=== PATIENT | female | born 1960 | race Caucasian/White ===

== ENCOUNTER 2020-01-07 08:52 | Outpatient (CLI) | payer OTHER, SELFPAY ==
--- NOTE | 2020-01-07 08:59 | MM_ITS ---
WS: [id number] BILATERAL DIGITAL SCREENING MAMMOGRAPHY WITH CAD CLINICAL INFORMATION: SCREENING HISTORY: Screening mammogram. No current complaints. COMPARISON: July 08, 2018 TECHNIQUE: Bilateral CC and MLO views. FINDINGS: Scattered fibroglandular densities bilaterally. No suspicious focal mass, asymmetry, calcifications, or architectural distortion. No evidence of malignancy. MM/[place] [id number] IMPRESSION: BI-RADS: 1-Negative FOLLOW UP: 1 Year Follow-up Recommend return to annual screening mammography.
== END 2020-01-07 08:53 | disposition home or self-care (01) ==
LOC: RADSHAW 08:58
PROVIDERS: PCP Family Medicine; Visit Provider Family Medicine
DX: Z12.31 Encounter for screening mammogram for malignant neoplasm of breast (principal)
CPT/HCPCS: 77067

== ENCOUNTER 2020-10-09 20:05 | Emergency (ER) | payer OTHER, SELFPAY ==
[2020-10-09 20:08] VITALS: RESP 16; BMI 35.5
[2020-10-09 20:21] VITALS: BP 170/92; PULSE 72; RESP 17; TEMP 36.6; O2SAT 95
--- NOTE | 2020-10-09 20:39 | XR_ITS ---
WS: [id number] XR chest 1V portable [id number] REASON FOR EXAM: cp FINDINGS: The chest is unchanged compared to 09/17/2016. The heart and the mediastinum are within normal limits. Calcified granulomatous change in both hemithoraces. No active pulmonary parenchymal or pleural disease. Bilateral shoulder joint degenerative change. Degenerative spondylosis in the mid and lower thoracic spine. XR/XR chest 1V portable [id number] IMPRESSION: No acute chest abnormality.
--- NOTE | 2020-10-09 20:39 | ECG_ITS ---
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 Measurements Intervals [place] Rate: 75 P: 44 NV: 172 QRS: -14 QRSD: 98 T: 50 QT: 385 QTc: 430 Interpretive Statements SINUS RHYTHM WITH OCCASIONAL VENTRICULAR PREMATURE COMPLEXES MINIMAL VOLTAGE CRITERIA FOR LVH, CONSIDER NORMAL VARIANT [MEETS CRITERIA IN ONE OF: R(aVL), S(V1), R(V5), R(V5/V6)+S(V1)] POSSIBLE ANTERIOR MYOCARDIAL INFARCTION [30 ms Q WAVE IN V3/V4, OR R < 0.2 mV IN V4], OF INDETERMINATE AGE Compared to ECG 09/17/2016 10:15:32 Ventricular premature complex(es) now present Myocardial infarct finding still present Electronically Signed On 10-12-2020 7:38:21 CDT by Stefania Liu M.D. [id number]
--- NOTE | 2020-10-09 20:40 | CTR_ITS ---
PROCEDURE INFORMATION: Exam: CT Head Without Contrast Exam date and time: 10/09/2020 9:10 PM Age: 60 years old Clinical indication: Patient HX: C/O dizziness - near syncope; Additional info: Dizzy TECHNIQUE: Imaging protocol: Computed tomography of the head without contrast. Radiation optimization: All CT scans at this facility use at least one of these dose optimization techniques: automated exposure control; mA and/or kV adjustment per patient size (includes targeted exams where dose is matched to clinical indication); or iterative reconstruction. COMPARISON: No relevant prior studies available. RADIATION DOSE METRICS: Total DLP (mGy-cm): 893.83 FINDINGS: Brain: Unremarkable. No hemorrhage. No significant white matter disease. No edema. Cerebral ventricles: No ventriculomegaly. Bones/joints: Unremarkable. No acute fracture. Paranasal sinuses: Visualized sinuses are unremarkable. No fluid levels. Mastoid air cells: Unremarkable as visualized. No mastoid effusion. Orbital cavity: No acute abnormality of the orbits demonstrated. Soft tissues: The soft tissues appear unremarkable. CT/CT head wo con* [id number] IMPRESSION: No acute intracranial abnormality demonstrated. Radiation Dose CTDIVOL = (mGy): DLP = 893.83 (mGy-cm)
[2020-10-09 21:02] LABS: Add Urine Microscopic? NO
[2020-10-09 21:04] LABS: Basophils % 0.3 %; Eosinophils # 0.2 10^3/uL (0.0-0.8); Eosinophils % 1.9 %; Hematocrit 35.2 % (37.0-47.0); Hemoglobin 11.6 g/dL (11.5-15.3); Lymphocytes # 2.3 10^3/uL (0.8-4.8); Lymphocytes % 26.3 %; Mean Corpuscular Hemoglobin 31.4 pg (28.0-34.0); Mean Corpuscular Volume 95.1 fL (81-99); Mean Platelet Volume 10.3 fL (7.4-10.4); Monocytes # 0.8 10^3/uL (0.2-0.9); Monocytes % 9.2 %; Neutrophils # 5.33 10^3/uL (1.8-7.7); Neutrophils % 62.1 %; Nucleated Red Blood Cells % 0 %; Platelet Count 268 10^3/cmm (130-400); Red Cell Distribution Width 12.9 % (12.1-15.1); White Blood Count 8.6 10^3/uL (4.0-10.0)
--- NOTE | 2020-10-09 21:04 | ED_ITS ---
HPI - Dizziness General: Chief Complaint: Dizziness Stated Complaint: NEAR SYNCOPE Time Seen by Provider: 10/09/20 20:25 History of Present Illness: HPI Narrative: 60-year-old essentially reporting near syncopal episode while cleaning up dinner this evening. She had eaten, rabbit, and was washing dishes when she suddenly became dizzy, a bit unsteady on her feet, and went to go sit down. She had some mild substernal discomfort in her chest, that is now located in the upper left chest towards her left shoulder. No significant shortness of breath, but she did have diaphoresis with some nausea she has not had episodes like this before. MD elicited complaint: dizziness, lightheadedness and near syncope Onset (ago): hour(s) Timing: sudden onset Severity: moderate Description: lightheadedness, off-balance and near-syncope History of similar symptoms: No Exacerbating factors: nothing Relieving factors: nothing Associated symptoms: Reports chest pain, diaphoresis and nausea; Denies chills, cough, fevers/chills, headache(s), palpitations, short of breath or vomiting Associated neuro symptoms: Deny confusion, difficulty speaking, dysphagia, facial numbness or facial weakness Review of Systems Const: Reports: diaphoresis; Denies: fever(s) or chills Eyes: Denies: change in vision ENMT: Denies: throat pain Card: Reports: chest pain and irregular heart rhythm (Chronic from PVCs); Denies: palpitations Resp: Denies: dyspnea, productive cough, non-productive cough or wheezing GI: Reports: nausea; Denies: vomiting or dysphagia : Denies: difficulty voiding Neuro: Denies: headache(s) or confusion PFS ED PFSH: Medical History (Updated 10/09/20 @ 23:49 by Bulmaro Mcclellan DO) HTN (hypertension) Sarcoidosis Social History (Updated 01/28/20 @ 14:50 by Antionette Bergeron RN) Smoking and tobacco status: never smoked Alcohol intake: never Physical Exam Const: COMMON NORMALS: patient oriented x3 GENERAL APPEARANCE: well developed ORIENTATION/CONSCIOUSNESS: Yes oriented to person, Yes oriented to place and Yes oriented to time HENMT: COMMON NORMALS: normocephalic, external ears normal and Normal external nose present HEAD & SCALP: normocephalic NOSE: Normal external nose present and No nasal discharge present EXTERNAL EAR: Yes external ears normal THROAT: posterior oropharynx normal; no peritonsillar mass Eye: COMMON NORMALS: Equal, round and reactive pupils present, EOMs intact bilaterally and conjunctivae normal EYELID: eyelids normal CONJUNCTIVA: Yes conjunctivae normal PUPIL: Yes Equal, round and reactive pupils present Neck/C-Spine: GENERAL: No tracheal deviation Chest: COMMONS NORMALS: normal inspection of the chest CHEST: No tenderness Resp: COMMON NORMALS: clear to auscultation bilaterally EFFORT & INSPECTION: No tachypneic, No respiratory distress, No retractions, No uses accessory muscles and No tracheal deviation AUSCULTATION: clear to auscultation bilaterally, no rhonchi, no wheezes and lung sounds not diminished Cardio: COMMON NORMALS: regular rate RATE: regular rate RHYTHM: abnormal rhythm with ectopic beats HEART SOUNDS: no murmurs PERIPHERAL PULSES: radial pulses present GI: INSPECTION: No abdominal distension AUSCULTATION: No Hyperactive bowel sounds present and No Hypoactive bowel sounds present PALPATION: No Guarding due to palpation present (GI) and No Rigid due to palpation PERCUSSION: no dullness to percussion and no tympanic to percussion Neuro: COMMON NORMALS: patient oriented x3 SENSORIUM/ORIENTATION: Yes oriented to person, Yes oriented to place and Yes oriented to time CRANIAL NERVES: Yes CN normal except as noted COORDINATION/BALANCE: wxcybo-da-edmz test normal and hkrw-at-aetb test normal SPEECH: speech normal SENSORY EXAM: Yes extremities (Normal) MOTOR EXAM: Pronator motor function not present COORDINATION: nekqep-yo-evye test normal and nbyd-xh-rvhs test normal Psych: COMMON NORMALS: mental status grossly normal Skin: COMMON NORMALS: no rashes or lesions noted GENERAL SKIN EXAM: no rashes or lesions noted Course Vital Signs: Vital signs: Vital Signs Temperature 97.9 F 10/09/20 20:21 Pulse Rate 77 10/10/20 00:19 Respiratory Rate 16 10/10/20 00:19 Blood Pressure 122/74 10/10/20 00:19 Pulse Oximetry 98 10/10/20 00:19 MDM - Dizziness MDM Narrative: Medical decision making narrative: Symptoms essentially are self resolved. The patient has been up and walked in the ER. She is not had any language problems. Chest discomfort is gone. White blood cell count is 8.6. Hemoglobin 11.6. Creatinine 1.3. D-dimer is mildly high at 0.93, but by years criteria for PE, less than 0.4% chance given other factors. Troponin did not elevated 2 hours. No significant arrhythmia on the monitor. She will be allowed home. She is encouraged to follow-up as an outpatient for possible Holter monitoring versus any other needed outpatient tests. She knows to return for return of her symptoms. Lab Data: Labs: Lab Results 10/09/20 10/09/20 10/09/20 Range/Units 20:50 20:50 20:50 WBC 8.6 (4.0-10.0) 10^3/ uL RBC 3.70 L (4.1-5.3) 10^6/u L Hgb 11.6 (11.5-15.3) g/dL Hct 35.2 L (37.0-47.0) % MCV 95.1 (81-99) fL MCH 31.4 (28.0-34.0) pg MCHC 33.0 (30.0-36.0) g/dL RDW 12.9 (12.1-15.1) % Plt Count 268 (130-400) 10^3/c mm MPV 10.3 (7.4-10.4) fL Neut % (Auto) 62.1 % Lymph % (Auto) 26.3 % Larue % (Auto) 9.2 % Eos % (Auto) 1.9 % Baso % (Auto) 0.3 % Neut # (Auto) 5.33 (1.8-7.7) 10^3/u L Lymph # (Auto) 2.3 (0.8-4.8) 10^3/u L Larue # (Auto) 0.8 (0.2-0.9) 10^3/u L Eos # (Auto) 0.2 (0.0-0.8) 10^3/u L Baso # (Auto) 0.0 (0.0-0.1) 10^3/u L Nucleated RBC % (a uto) 0 % Nucleated RBCs # 0.0 /100WBC D-Dimer 0.93 H (0-0.59) ug/mIFE U Sodium 135 L (136-145) mmol/L Potassium 4.1 (3.5-5.1) mmol/L Chloride 100 (98-107) mmol/L Carbon Dioxide 25 (22-29) mmol/L Anion Gap 14.1 (5-19) BUN 19 (8-23) mg/dL Creatinine 1.3 H (0.5-0.9) mg/dL GFR Calculation 41.5 L (90-130) mL/min Glucose 99 (65-115) mg/dL Calculated Osmolal ity 282 L (285-295) mOsm/k g Calcium 9.3 (8.5-10.5) mg/dL Total Bilirubin 0.2 (0.15-1.2) mg/dL AST 17 (0-32) U/L ALT 13 (0-33) U/L Alkaline Phosphata se 70 (35-105) IU/L Creatine Kinase 41 (26-192) U/L Troponin T Baselin e (0-10) ng/L Troponin T [address] [place] (0-10) ng/L Delta Troponin T (0-10) ABS# NT-Pro-B Natriuret Pep 341 H (0-125) pg/mL Total Protein 6.0 L (6.6-8.7) g/dL Albumin 3.9 (3.5-5.2) g/dL Globulin 2.1 (1.3-4.6) g/dL Urine Color (Yellow) Urine Appearance (CLEAR) Urine pH (5-7) Ur Specific Gravit y (1.005-1.030) Urine Protein (Negative) Urine Glucose (UA) (Normal) Urine Ketones (Negative) Urine Blood (Negative) Urine Nitrate (Negative) Urine Bilirubin (Negative) Urine Urobilinogen (Negative) mg/dL Ur Leukocyte Ashley ase (Negative) 10/09/20 10/09/20 10/09/20 Range/Units 20:50 20:50 22:52 WBC (4.0-10.0) 10^3/ uL RBC (4.1-5.3) 10^6/u L Hgb (11.5-15.3) g/dL Hct (37.0-47.0) % MCV (81-99) fL MCH (28.0-34.0) pg MCHC (30.0-36.0) g/dL RDW (12.1-15.1) % Plt Count (130-400) 10^3/c mm MPV (7.4-10.4) fL Neut % (Auto) % Lymph % (Auto) % Larue % (Auto) % Eos % (Auto) % Baso % (Auto) % Neut # (Auto) (1.8-7.7) 10^3/u L Lymph # (Auto) (0.8-4.8) 10^3/u L Larue # (Auto) (0.2-0.9) 10^3/u L Eos # (Auto) (0.0-0.8) 10^3/u L Baso # (Auto) (0.0-0.1) 10^3/u L Nucleated RBC % (a uto) % Nucleated RBCs # /100WBC D-Dimer (0-0.59) ug/mIFE U Sodium (136-145) mmol/L Potassium (3.5-5.1) mmol/L Chloride (98-107) mmol/L Carbon Dioxide (22-29) mmol/L Anion Gap (5-19) BUN (8-23) mg/dL Creatinine (0.5-0.9) mg/dL GFR Calculation (90-130) mL/min Glucose (65-115) mg/dL Calculated Osmolal ity (285-295) mOsm/k g Calcium (8.5-10.5) mg/dL Total Bilirubin (0.15-1.2) mg/dL AST (0-32) U/L ALT (0-33) U/L Alkaline Phosphata se (35-105) IU/L Creatine Kinase (26-192) U/L Troponin T Baselin e 6 (0-10) ng/L Troponin T [address] [place] 6.00 (0-10) ng/L Delta Troponin T 0 (0-10) ABS# NT-Pro-B Natriuret Pep (0-125) pg/mL Total Protein (6.6-8.7) g/dL Albumin (3.5-5.2) g/dL Globulin (1.3-4.6) g/dL Urine Color Yellow (Yellow) Urine Appearance Clear (CLEAR) Urine pH 5 (5-7) Ur Specific Gravit y 1.020 (1.005-1.030) Urine Protein Neg (Negative) Urine Glucose (UA) Norm (Normal) Urine Ketones Negative (Negative) Urine Blood Neg (Negative) Urine Nitrate Negative (Negative) Urine Bilirubin Neg (Negative) Urine Urobilinogen 1 H (Negative) mg/dL Ur Leukocyte Ashley ase Negative (Negative) Discharge Plan Discharge Patient Disposition: Home Clinical Impression: Near syncope Chest pain Qualifiers: Chest pain type: unspecified Qualified Code(s): R07.9 - Chest pain, unspecified Condition: Stable Prescriptions: No Action lisinopril 20 mg tablet 20 mg PO DAILY RF: 0 amitriptyline 25 mg tablet 25 mg PO DAILY RF: 0 estradiol 0.5 mg tablet 0.5 mg PO DAILY RF: 0 levothyroxine 50 mcg tablet 50 mcg PO DAILY RF: 0 lorazepam 0.5 mg tablet 0.5 mg PO TID PRNRF: 0 tramadol 50 mg tablet 50 mg PO .2 tabs am, 1 tab pm RF: 0 metoprolol tartrate 50 mg tablet 50 mg PO BID Qty: 60 RF: 11 Discharge Orders: Discharge ED (Routine); Ordered 10/09/20 Ordered By: Bulmaro Mcclellan Referrals: Jessie Bean MD [Primary Care Provider] - Stefania Liu MD [Physician] - 4-7 days Patient Instructions: Chest Pain (ED), Near Syncope (ED) Activity Restrictions/Additional Instructions: Return for return of or worsening chest discomfort, shortness of breath, mental status changes, weakness, episodes of syncope or passing out, any other concerning symptoms. Follow-up with cardiology, give them a call Saturday to let them know you were here Coding Level of Care Code ED Manager Assurance for David Gibbs
[2020-10-09 21:12] LABS: Bilirubin Urine Neg (Negative); Blood Urine Neg (Negative); Glucose Urine UA Norm (Normal); Ketones Urine Negative (Negative); Leukocyte Esterase Urine Negative (Negative); Nitrate Urine Negative (Negative); Protein Urine Neg (Negative); Urine Appearance Clear (CLEAR); Urine Color Yellow (Yellow); Urobilinogen Urine 1 mg/dL (Negative); pH Urine 5 (5-7)
[2020-10-09 21:27] LABS: Troponin(5th) Baseline 6 ng/L (0-10)
[2020-10-09 21:37] LABS: Alanine Aminotransferase 13 U/L (0-33); Albumin Level 3.9 g/dL (3.5-5.2); Alkaline Phosphatase 70 IU/L (35-105); Anion Gap 14.1 (5-19); Aspartate Amino Transferase 17 U/L (0-32); Blood Urea Nitrogen 19 mg/dL (8-23); Calcium 9.3 mg/dL (8.5-10.5); Carbon Dioxide 25 mmol/L (22-29); Chloride 100 mmol/L (98-107); Creatine Phosphokinase 41 U/L (26-192); Globulin 2.1 g/dL (1.3-4.6); Glomerular Filtration Rate 41.5 mL/min (90-130); Glucose 99 mg/dL (65-115); NT Pro B Type Natriuretic Pept 341 pg/mL (0-125); Osmolality Calculated 282 mOsm/kg (285-295); Potassium 4.1 mmol/L (3.5-5.1); Sodium 135 mmol/L (136-145); Total Bilirubin 0.2 mg/dL (0.15-1.2)
[2020-10-09 21:56] LABS: D Dimer 0.93 ug/mIFEU (0-0.59)
[2020-10-09 22:30] VITALS: BP 149/61; PULSE 74; RESP 14; O2SAT 96
--- NOTE | 2020-10-09 22:39 | ECG_ITS ---
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 Measurements Intervals [place] Rate: 72 P: 36 IN: 152 QRS: -11 QRSD: 90 T: 31 QT: 384 QTc: 420 Interpretive Statements SINUS RHYTHM WITH OCCASIONAL VENTRICULAR PREMATURE COMPLEXES MODERATE VOLTAGE CRITERIA FOR LVH, CONSIDER NORMAL VARIANT [MEETS CRITERIA IN ONE OF: R(aVL), S(V1), R(V5), R(V5/V6)+S(V1)] POSSIBLE ANTERIOR MYOCARDIAL INFARCTION , PROBABLY OLD [30 ms Q WAVE IN V3/V4, OR R < 0.2 mV IN V4] Compared to ECG 10/09/2020 20:19:25 No significant changes Electronically Signed On 10-11-2020 0:05:41 CDT by Lit Louise M.D. [id number]
[2020-10-09 23:00] VITALS: BP 138/74; PULSE 68; RESP 16; O2SAT 98
[2020-10-09 23:23] LABS: Troponin 5 2HR Delta 0 ABS# (0-10)
[2020-10-09 23:30] VITALS: BP 126/78; PULSE 79; RESP 18; O2SAT 98
[2020-10-10] VITALS: BP 134/74; PULSE 78; RESP 18; O2SAT 99
[2020-10-10 00:19] VITALS: BP 122/74; PULSE 77; RESP 16; O2SAT 98
== END 2020-10-10 00:20 | disposition home or self-care (01) ==
PROVIDERS: Emergency Provider Emergency Medicine; PCP Family Medicine
DX: R55 Syncope and collapse (principal); R07.9 Chest pain, unspecified; I10 Essential (primary) hypertension
CPT/HCPCS: 70450; 71045; 80053; 81003; 82550; 83880; 84484; 85025; 85378; 93005; 99284

== ENCOUNTER 2021-12-21 07:35 | Outpatient (CLI) | payer OTHER, SELFPAY ==
--- NOTE | 2021-12-21 07:43 | MM_ITS ---
WS: [id number] VIEWS: MLO and CC views both breasts. 3D digital tomosynthesis is also included in this exam. Comparison made with prior exam of 02/04/2013, 04/05/2014, 05/16/2017, 07/08/2018, 08/01/2018, 01/07/2020. Findings: There was no sign of mass, architectural distortion or suspicious calcification in either breast. Sc attered fibroglandular densities MM/[place] [id number] Impression: BI-RADS: 2-Benign FOLLOW-UP: 1 Year Follow-up This mammogram was also analyzed by the Computer Aided Detection System R2 Imag e Sill Worker.
== END 2021-12-21 07:36 | disposition home or self-care (01) ==
LOC: RAD 07:41
PROVIDERS: PCP Family Medicine; Visit Provider Family Medicine
DX: Z12.31 Encounter for screening mammogram for malignant neoplasm of breast (principal)
CPT/HCPCS: 77063; 77067

== ENCOUNTER 2022-10-08 13:54 | Outpatient (CLI) | payer OTHER, SELFPAY ==
--- NOTE | 2022-10-08 15:23 | XR_ITS ---
WS: [id number] XR lumbar spine 2-3V* [id number] REASON FOR EXAM: left low back si joint pain w/ radiation down leg FINDINGS: Rotatory scoliosis convex left. Normal lordosis. No significant focal vertebral body abnormality. Disc spaces L1-L5 intact and relatively well-preserv ed. Mild narrowing of the L5-S1 disc space. Mild to moderate vertebral body osteophytosis L1-L5. 4 to 5 mm of anterolisthesis of L4 in relation to L5. Mild to moderate degenerative change in the facet joints L4-S1. XR/XR lumbar spine 2-3V* [id number] IMPRESSION: Degenerative spondylosis as above.
--- NOTE | 2022-10-08 15:23 | XR_ITS ---
WS: [id number] XR pelvis 1-2V* [id number] REASON FOR EXAM: left low back si joint pain w/ radiation down leg FINDINGS: The sacroiliac joints are distinct without evidence of fusion or bridging. Normal subarticular sclero sis. No focal bony abnormality of the sacrum or iliac bones. Mild symmetric narrowing of the hip joints with mild subchondral sclerosis and osteophytosis of the a cetabulum. XR/XR pelvis 1-2V* [id number] IMPRESSION: Normal sacroiliac joints. Mild osteoarthritis of the hips.
== END 2022-10-08 13:55 | disposition home or self-care (01) ==
PROVIDERS: PCP Family Medicine; Visit Provider Family Medicine
DX: M53.3 Sacrococcygeal disorders, not elsewhere classified (principal); I10 Essential (primary) hypertension; E03.9 Hypothyroidism, unspecified; I49.3 Ventricular premature depolarization; M16.0 Bilateral primary osteoarthritis of hip; M47.816 Spondylosis without myelopathy or radiculopathy, lumbar region
CPT/HCPCS: 72100; 72170; 80053; 80061; 82306; 82607; 84443; 85025

== ENCOUNTER 2023-02-13 10:02 | Emergency (ER) | payer OTHER, SELFPAY ==
[2023-02-13 10:15] VITALS: BP 129/69; PULSE 78; RESP 16; TEMP 36.6; O2SAT 97; BMI 42.4
--- NOTE | 2023-02-13 10:33 | CTR_ITS ---
PROCEDURE INFORMATION: Exam: CT Head Without Contrast Exam date and time: 02/13/2023 11:02 AM Age: 62 years old Clinical indication: Other: Dysarthria TECHNIQUE: Imaging protocol: Computed tomography of the head without contrast. Radiation optimization: All CT scans at this facility use at least one of these dose optimization techniques: automated exposure control; mA and/or kV adjustment per patient size (includes targeted exams where dose is matched to clinical indication); or iterative reconstruction. REPORTING DATA: Count of CT and Cardiac NM exams in prior 12 months: This patient has received 0 known CTs and 0 known cardiac nuclear medicine studies in the 12 months prior to the current study. COMPARISON: CT head wo con* [id number] 10/09/2020 9:29 PM RADIATION DOSE METRICS: Total DLP (mGy-cm): 1052.64 FINDINGS: Brain: No hemorrhage. Preserved alicia-white matter differentiation. Mild periventricular white matter hypoattenuation likely on the basis of chronic microvascular ischemic change. No mass effect. Mild intracranial vascular calcifications. Cerebral ventricles: No ventriculomegaly. Pituitary gland and sella: Partially empty sella. Paranasal sinuses: Visualized sinuses are unremarkable. No fluid levels. Mastoid air cells: Visualized mastoid air cells are well aerated. Bones/joints: Unremarkable. No acute fracture. Soft tissues: Unremarkable. CT/CT head wo con* [id number] IMPRESSION: No acute intracranial findings.
--- NOTE | 2023-02-13 10:42 | W.ED.NEUROSD ---
HPI - Neuro Symptoms/Deficit General: Chief Complaint: Neuro Symptoms/Deficit Stated Complaint: cough,weakness,slurred speech,confusion Time Seen by Provider: 02/13/23 10:33 Source: patient and family Mode of arrival: ambulatory History of Present Illness: 62-year-old female presents emergency room with cough weakness slurred speech and confusion this been going on for a week no reported fever cough been nonproductive she denies chest pain or abdominal pain. She has had trouble can with confusion family at the bedside her states her speech has been slurred has not noticed any facial weakness or drooping. She denies any difficulty was wallowing or with vision. No previous history of stroke or coronary artery disease. Has reports that last night she was up most of the night wandering around the house and hit try to redirect her. He provides most of the history this morning. She is not on any anticoagulation. She does have a history hypertension. Onset (ago): minute(s) Timing confirmed by: spouse Location: speech Quality: weak Relieving factors: none Exacerbating factors: none Associated symptoms: Reports cough; Deny chest pain, diaphoresis, fevers/chills, headache(s), anorexia, malaise, nausea, seizures, short of breath, syncope, tingling, vertigo, vomiting or weakness Treatments Prior to Arrival: none Review of Systems Const: Denies: fever(s), chills, malaise or diaphoresis ENMT: Denies: throat pain, ear or mastoid pain, nasal discharge or nasal congestion Card: Denies: chest pain or syncope Resp: Reports: non-productive cough; Denies: dyspnea or productive cough GI: Denies: nausea or vomiting : Denies: flank pain, difficulty voiding, dysuria, urinary frequency or urinary urgency Skin/Breast: Denies: rash or pruritus Neuro: Denies: headache(s) or vertigo PFSH ED PFSH: Medical History Anxiety Depression HTN (hypertension) Hypothyroidism Insomnia Sarcoidosis Symptomatic PVCs Surgical History History of carpal tunnel release of both wrists History of glaucoma tube shunt procedure History of hysterectomy for benign disease Family History Father Dementia Grandmother Diabetes Stroke Brother Cancer leukemia Sister Sarcoidosis Social History Smoking and tobacco status: never smoked Alcohol intake: never Substance/Drug Use: never Lives independently: Yes Household members: spouse Marital status: Number of children: 2 Number of grandchildren: 2 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al status: employed 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: [employer]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 Agree to transfusion: Yes NIH stroke score NIHSS: Level Of Consciousness - 1a: 0 Level Of Consciousness Questions - 1b: Both Correct Level Of Consciousness Commands - 1c: Both Correct Best Gaze - 2: Normal Visual [place] - 3: No Visual Loss Facial Palsy - 4: Normal Motor Arm Right - 5: No Drift Motor Arm Left - 5: No Drift Motor Leg Right - 6: No Drift Motor Leg Left - 6: No Drift Limb Ataxia - 7: Absent Sensory - 8: Normal Best Language - 9: No Aphasia Dysarthia - 10: Mild/Moderate Dysarthia Extinction And Inattention - 11: 0 Score: Total Score: 1 Physical Exam Const: GENERAL APPEARANCE: cooperative and comfortable ORIENTATION/CONSCIOUSNESS: Yes awake HENMT: COMMON NORMALS: normocephalic, atraumatic and hearing grossly normal bilaterally HEAD & SCALP: normocephalic and atraumatic Resp: COMMON NORMALS: normal respiratory effort, No retractions, No use of accessory muscles and clear to auscultation bilaterally AUSCULTATION: clear to auscultation bilaterally Cardio: COMMON NORMALS: regular rate, regular rhythm and No murmurs present (Cardio) RATE: regular rate RHYTHM: regular rhythm GI: COMMON NORMALS: Soft to palpation and No hepatosplenomegaly present AUSCULTATION: Yes normoactive bowel sounds PALPATION: Yes Soft to palpation, No Tenderness to palpation present (GI), No Guarding due to palpation present (GI) and Yes No hepatosplenomegaly present Extremity: COMMON NORMALS: normal to inspection, capillary refill normal, no clubbing, cyanosis or edema, no calf tenderness and no pedal edema Skin: COMMON NORMALS: no rashes or lesions noted GENERAL SKIN EXAM: no rashes or lesions noted Course Vital Signs: Vital signs: Vital Signs Temperature 97.8 F 02/13/23 10:15 Pulse Rate 78 02/13/23 10:15 Respiratory Rate 16 02/13/23 10:15 Blood Pressure 129/69 02/13/23 10:15 Pulse Oximetry 97 02/13/23 10:15 Oxygen Delivery Me thod Room Air 02/13/23 10:15 MDM - Neuro Symptoms/Deficit Medical Decision Making Patient has NIH score of 1. She is awake and alert at this time. describes her symptoms are much worse at night. He has a difficult time with her last night. CT does not show anything acute. We will start her on clopidogrel aspirin and atorvastatin set her up for outpatient MRI carotid duplex echocardiogram and 48-hour Holter follow-up with primary care. She may also have some cognitive deficits and some of the symptoms may be sundowning primary care can refer to neurology if felt appropriate. Medical Records I reviewed the patient's medical records. Lab Data I reviewed the patient's lab results. 02/13/23 10:45 02/13/23 10:[address] 02/13/23 10:33 IMPRESSION: No acute intracranial findings. Laboratory Results WBC 8.3 10^3/uL (4.0-10.0) 02/13/23 10:45 RBC 3.60 10^6/uL (4.1-5.3) L 02/13/23 10:45 Hgb 11.7 g/dL (11.5-15.3) 02/13/23 10:45 Hct 35.1 % (37.0-47.0) L 02/13/23 10:45 MCV 97.5 fl (81-99) 02/13/23 10:45 MCH 32.5 pg (28.0-34.0) 02/13/23 10:45 MCHC 33.3 g/dL (30.0-36.0) 02/13/23 10:45 RDW 11.6 % (12.1-15.1) L 02/13/23 10:45 Plt Count 261 10^3/cmm (130-400) 02/13/23 10:45 MPV 10.5 fL (7.4-10.4) H 02/13/23 10:45 Neut % (Auto) 60.3 % 02/13/23 10:45 Lymph % (Auto) 25.7 % 02/13/23 10:45 [place] % (Auto) 8.7 % 02/13/23 10:45 Eos % (Auto) 4.7 % 02/13/23 10:45 Baso % (Auto) 0.4 % 02/13/23 10:45 Neut # (Auto) 5.02 10^3/uL (1.8-7.7) 02/13/23 10:45 Lymph # (Auto) 2.1 10^3/uL (0.8-4.8) 02/13/23 10:45 [place] # (Auto) 0.7 10^3/uL (0.2-0.9) 02/13/23 10:45 Eos # (Auto) 0.4 10^3/uL (0.0-0.8) 02/13/23 10:45 Baso # (Auto) 0.0 10^3/uL (0.0-0.1) 02/13/23 10:45 Nucleated RBC % (auto) 0 % 02/13/23 10:45 Nucleated RBCs # 0.0 /100WBC 02/13/23 10:45 Sodium 139 mmol/L (136-145) 02/13/23 10:45 Potassium 4.4 mmol/L (3.5-5.1) 02/13/23 10:45 Chloride 104 mmol/L (98-107) 02/13/23 10:45 Carbon Dioxide 26 mmol/L (22-29) 02/13/23 10:45 Anion Gap 13.4 (5-19) 02/13/23 10:45 BUN 14 mg/dL (8-23) 02/13/23 10:45 Creatinine 1.2 mg/dL (0.5-0.9) H 02/13/23 10:45 GFR Calculation 45.2 mL/min (90-130) L 02/13/23 10:45 Glucose 100 mg/dL (65-115) 02/13/23 10:45 Calculated Osmolality 289 mOsm/kg (285-295) 02/13/23 10:45 Calcium 9.3 mg/dL (8.5-10.5) 02/13/23 10:45 Total Bilirubin 0.2 mg/dL (0.15-1.2) 02/13/23 10:45 AST 15 U/L (0-32) 02/13/23 10:45 ALT 12 U/L (0-33) 02/13/23 10:45 Alkaline Phosphatase 78 U/L (35-105) 02/13/23 10:45 Troponin T Baseline 6 ng/L (0-10) 02/13/23 10:45 Troponin T 120 Minute 6.00 ng/L (0-10) 02/13/23 12:45 Delta Troponin T 0 ABS# (0-10) 02/13/23 12:45 Total Protein 5.9 g/dL (6.6-8.7) L 02/13/23 10:45 Albumin 4.1 g/dL (3.5-5.2) 02/13/23 10:45 Globulin 1.8 g/dL (1.3-4.6) 02/13/23 10:45 Urine Color Yellow (Yellow) 02/13/23 11:42 Urine Appearance Clear (CLEAR) 02/13/23 11:42 Urine pH 8 (5-7) H 02/13/23 11:42 Ur Specific [place] 1.005 (1.005-1.030) 02/13/23 11:42 Urine Protein Neg (Negative) 02/13/23 11:42 Urine Glucose (UA) Norm (Normal) 02/13/23 11:42 Urine Ketones Negative (Negative) 02/13/23 11:42 Urine Blood Neg (Negative) 02/13/23 11:42 Urine Nitrate Negative (Negative) 02/13/23 11:42 Urine Bilirubin Neg (Negative) 02/13/23 11:42 Urine Urobilinogen Norm mg/dL (Negative) 02/13/23 11:42 Ur Leukocyte Esterase Negative (Negative) 02/13/23 11:42 Discharge Plan Discharge Patient Disposition: Home Clinical Impression: Cerebrovascular accident Condition: Stable Prescriptions: New clopidogrel 75 mg tablet 75 mg PO DAILY Qty: 30 0RF aspirin 81 mg tablet,delayed release (DR/EC) 81 mg PO DAILY Qty: 30 0RF atorvastatin 40 mg tablet 40 mg PO DAILY Qty: 30 0RF No Action lisinopril 20 mg tablet 20 mg PO DAILY tramadol 50 mg tablet 50 mg PO TID trazodone 100 mg tablet 100 mg PO BEDTIME omeprazole 20 mg capsule,delayed release(DR/EC) 20 mg PO DAILY duloxetine 30 mg capsule,delayed release(DR/EC) 60 mg PO .at bedtime mirtazapine 15 mg tablet 15 mg PO BEDTIME simvastatin 10 mg tablet 10 mg PO QPM cholecalciferol (vitamin D3) 125 mcg (5,000 unit) capsule 125 mcg PO DAILY lorazepam 0.5 mg tablet 1 mg PO BEDTIME metoprolol tartrate 50 mg tablet 50 mg PO BID Qty: 180 1RF levothyroxine 75 mcg tablet 75 mcg PO DAILY Calcium 600 600 mg calcium (1,500 mg) Tablet 600 mg PO DAILY vitamin E 268 mg (400 unit) Capsule 268 mg PO DAILY magnesium 200 mg Tablet 200 mg PO DAILY Discharge Orders: Discharge ED (Routine); Ordered 02/13/23 Ordered By: Simón Estrella Referrals: Linda Null DO [Primary Care Provider] - Discharge Diet: Usual diet Discharge Activity: Increase activity as tolerated Patient Instructions: Opioid Safety, Pain Management Activity Restrictions/Additional Instructions: You are seen today for possible stroke. Since your symptoms began 1 over 1-week ago there is no intervention at this point there is no acute findings on the CT. We will set up outpatient evaluation as well as recommend that you start baby aspirin daily along with clopidogrel and atorvastatin follow-up with your primary care doctor within the next week recheck if you have any worsening or changes symptoms. Coding Level of Care Code ED Thermal Intelligence Analyst for David Gibbs
--- NOTE | 2023-02-13 10:50 | ECG_ITS ---
[facility] Test Date: 2023-02-13 Pat Name: Anabelle Seaman Department: Room: Gender: Female Cotton Tier: : 1960 Requested By: Simón Robels Order Number: [id number] Janey MD: Lit Louise M.D. Measurements Intervals [place] Rate: 80 P: 45 VA: 170 QRS: -4 QRSD: 98 T: 71 QT: 372 QTc: 429 Interpretive Statements SINUS RHYTHM MINIMAL VOLTAGE CRITERIA FOR LVH, CONSIDER NORMAL VARIANT [MEETS CRITERIA IN ONE OF: R(aVL), S(V1), R(V5), R(V5/V6)+S(V1)] POSSIBLE ANTERIOR MYOCARDIAL INFARCTION , OF INDETERMINATE AGE [30 ms Q WAVE IN V3/V4, OR R < 0.2 mV IN V4] Compared to ECG 10/09/2020 21:13:26 Ventricular premature complex(es) no longer present Myocardial infarct finding still present Electronically Signed On 02-13-2023 21:31:10 CDT by Lit Louise M.D. [id number]
[2023-02-13 10:59] LABS: Basophils % 0.4 %; Eosinophils # 0.4 10^3/uL (0.0-0.8); Eosinophils % 4.7 %; Hematocrit 35.1 % (37.0-47.0); Hemoglobin 11.7 g/dL (11.5-15.3); Lymphocytes # 2.1 10^3/uL (0.8-4.8); Lymphocytes % 25.7 %; Mean Corpuscular HGB Conc 33.3 g/dL (30.0-36.0); Mean Corpuscular Hemoglobin 32.5 pg (28.0-34.0); Mean Corpuscular Volume 97.5 fl (81-99); Mean Platelet Volume 10.5 fL (7.4-10.4); Monocytes # 0.7 10^3/uL (0.2-0.9); Monocytes % 8.7 %; Neutrophils # 5.02 10^3/uL (1.8-7.7); Neutrophils % 60.3 %; Nucleated Red Blood Cells % 0 %; Platelet Count 261 10^3/cmm (130-400); Red Cell Distribution Width 11.6 % (12.1-15.1); White Blood Count 8.3 10^3/uL (4.0-10.0)
--- NOTE | 2023-02-13 10:59 | ECG_ITS ---
[facility] Test Date: 2023-02-13 Pat Name: Anabelle Seaman Department: Room: Gender: Female Vice Chancellor: : 1960 Requested By: Simón Robles Order Number: [id number] Janey MD: Lit Louise M.D. Measurements Intervals [place] Rate: 78 P: 48 ND: 180 QRS: -11 QRSD: 94 T: 57 QT: 374 QTc: 428 Interpretive Statements SINUS RHYTHM LOW QRS VOLTAGE IN PRECORDIAL LEADS [QRS DEFLECTION < 1.0 mV IN CHEST LEADS] PATTERN CONSISTENT WITH PULMONARY DISEASE MINIMAL VOLTAGE CRITERIA FOR LVH, CONSIDER NORMAL VARIANT [MEETS CRITERIA IN ONE OF: R(aVL), S(V1), R(V5), R(V5/V6)+S(V1)] Compared to ECG 02/13/2023 10:50:04 Low QRS voltage now present Myocardial infarct finding no longer present Low high Electronically Signed On 02-13-2023 21:17:28 CDT by Lit Louise M.D. [id number]
[2023-02-13 11:17] LABS: Alanine Aminotransferase 12 U/L (0-33); Albumin Level 4.1 g/dL (3.5-5.2); Alkaline Phosphatase 78 U/L (35-105); Anion Gap 13.4 (5-19); Aspartate Amino Transferase 15 U/L (0-32); Blood Urea Nitrogen 14 mg/dL (8-23); Calcium 9.3 mg/dL (8.5-10.5); Carbon Dioxide 26 mmol/L (22-29); Chloride 104 mmol/L (98-107); Globulin 1.8 g/dL (1.3-4.6); Glomerular Filtration Rate 45.2 mL/min (90-130); Glucose 100 mg/dL (65-115); Osmolality Calculated 289 mOsm/kg (285-295); Potassium 4.4 mmol/L (3.5-5.1); Sodium 139 mmol/L (136-145); Total Bilirubin 0.2 mg/dL (0.15-1.2); Total Protein 5.9 g/dL (6.6-8.7)
[2023-02-13 11:20] LABS: Troponin(5th) Baseline 6 ng/L (0-10)
[2023-02-13 12:38] LABS: Add Urine Microscopic? NO; Charge for UA Resulting for Rev
[2023-02-13 12:49] LABS: Bilirubin Urine Neg (Negative); Blood Urine Neg (Negative); Glucose Urine UA Norm (Normal); Ketones Urine Negative (Negative); Leukocyte Esterase Urine Negative (Negative); Nitrate Urine Negative (Negative); Protein Urine Neg (Negative); Specific Gravity, Urine 1.005 (1.005-1.030); Urine Appearance Clear (CLEAR); Urine Color Yellow (Yellow); Urobilinogen Urine Norm (Negative); pH Urine 8 (5-7)
[2023-02-13 13:46] LABS: Troponin 5 2HR Delta 0 ABS# (0-10)
== END 2023-02-13 13:29 | disposition home or self-care (01) ==
PROVIDERS: Emergency Provider Family Medicine; PCP Family Medicine
DX: I63.9 Cerebral infarction, unspecified (principal); I10 Essential (primary) hypertension
CPT/HCPCS: 36415; 70450; 80053; 81003; 84484; 85025; 93005; 99285

== ENCOUNTER 2023-03-19 09:20 | Outpatient (CLI) | payer OTHER, SELFPAY ==
--- NOTE | 2023-03-19 09:31 | MM_ITS ---
WS: [id number] BILATERAL 3D TOMOSYNTHESIS DIGITAL SCREENING MAMMOGRAPHY WITH CAD CLINICAL INFORMATION: SCREENING HISTORY: Screening mammogram. No current complaints. COMPARISON: 2021 TECHNIQUE: Bilateral CC and MLO views. FINDINGS: Scattered fibroglandular densities bilaterally. No suspicious focal mass, asymmetry, calcifications, or architectural distortion. No evidence of malignancy. IMPRESSION: MM/[place] [id number] BI-RADS: 1-Negative FOLLOW UP: 1 Year Follow-up Recommend return to annual screening mammography.
== END 2023-03-19 09:21 | disposition home or self-care (01) ==
LOC: RAD 09:22 → MOBLMAM 09:28
PROVIDERS: PCP Family Medicine; Visit Provider Family Medicine
DX: Z12.31 Encounter for screening mammogram for malignant neoplasm of breast (principal)
CPT/HCPCS: 77063; 77067

== ENCOUNTER 2024-03-27 13:48 | Outpatient (CLI) | payer MEDICARE, SELFPAY ==
--- NOTE | 2024-03-27 13:55 | MM_ITS ---
WS: [id number] BILATERAL 3D TOMOSYNTHESIS DIGITAL SCREENING MAMMOGRAPHY WITH CAD CLINICAL INFORMATION: SCREENING HISTORY: Screening mammogram. No current complaints. COMPARISON: 2022 TECHNIQUE: Bilateral CC and MLO views. FINDINGS: Scattered fibroglandular densities bilaterally. No suspicious focal mass, asymmetry, calcifications, or architectural distortion. No evidence of malignancy. Vascular calcifications. MM/[id number] IMPRESSION: BI-RADS: 2-Benign FOLLOW UP: 1 Year Follow-up Recommend return to annual screening mammography.
== END 2024-03-27 13:49 | disposition home or self-care (01) ==
LOC: RAD 13:51
PROVIDERS: PCP Family Medicine; Visit Provider Family Medicine
DX: Z12.31 Encounter for screening mammogram for malignant neoplasm of breast (principal); R92.323 Mammographic fibroglandular density, bilateral breasts; R92.1 Mammographic calcification found on diagnostic imaging of breast
CPT/HCPCS: 77063; 77067

== ENCOUNTER 2024-04-28 15:48 | Outpatient (CLI) | payer MEDICARE, SELFPAY ==
--- NOTE | 2024-04-28 15:51 | MR_ITS ---
WS: [id number] MRI LUMBAR SPINE NONCONTRAST TECHNIQUE: Sagittal T1, T2 and STIR imaging. Axial T1 and T2 imaging. CLINICAL INFORMATION: LUMBAR RADICULOPATHY COMPARISON: None. FINDINGS: Mild lumbar curve. Slight anterolisthesis L4 on L5. Disc bulging worse at L1-L3. No acute compression fractures. L1-L2: Mild annular bulging. Moderate facet arthropathy. Small facet effusions. Foramen are patent. L2-L3: Slight retrolisthesis. Mild disc bulge with narrowing of the subarticular recess bilaterally. Moderate facet arthropathy. Mild RIGHT foraminal narrowing. Small RIGHT foraminal protrusion. L3-L4: Mild disc bulging with moderate central canal stenosis. Impingement subarticular recess. Advan anant facet arthropathy with ligamentum flavum hypertrophy. Mild RIGHT foraminal narrowing with slight impingement on the exiting RIGHT L3 nerve root. L4-L5: Grade 1 anterolisthesis with moderate to severe central canal stenosis. Advanced facet arthrop athy with ligamentum flavum hypertrophy. Mild LEFT foraminal narrowing. L5-S1: Mild disc bulge with endplate ridging. Mild facet arthropathy. Foramen are patent. Tiny LEFT renal cyst. Visualized pelvic bony structures: Normal. Paravertebral soft tissues: Normal. MR/MR lumbar spine wo con* [id number] IMPRESSION: 1. Moderate central canal stenosis L3-4 and moderate to severe L4-5. Grade 1 a nterolisthesis L4 on L5. 2. Mild RIGHT L2-3 and RIGHT L3-4 foraminal narrowing. Slight impingement on t he exiting RIGHT L3 nerve root. 3. LEFT foraminal protrusion L4-5 slightly impinges the exiting LEFT L4 nerve root. 4. Advanced facet arthropathy L4-5.
== END 2024-04-28 15:49 | disposition home or self-care (01) ==
LOC: RAD 15:49
PROVIDERS: PCP Family Medicine; Visit Provider Student in an Organized Health Care Education/Training Program
DX: M54.16 Radiculopathy, lumbar region (principal); M47.896 Other spondylosis, lumbar region; M43.16 Spondylolisthesis, lumbar region; M48.061 Spinal stenosis, lumbar region without neurogenic claudication
CPT/HCPCS: 72148

== ENCOUNTER 2024-11-04 09:35 | Emergency (ER) | payer MEDICARE, SELFPAY ==
[2024-11-04 09:44] VITALS: BP 128/71; PULSE 65; RESP 18; TEMP 36.7; O2SAT 98
[2024-11-04 09:56] LABS: Basophils % 0.4 %; Eosinophils # 0.3 10^3/uL (0.0-0.8); Eosinophils % 4.1 %; Hematocrit 35.1 % (36-47); Lymphocytes # 2.2 10^3/uL (0.8-4.8); Lymphocytes % 26.2 %; Mean Corpuscular HGB Conc 31.6 g/dL (30-55); Mean Corpuscular Hemoglobin 31.2 pg (27-33); Mean Corpuscular Volume 98.6 fl (85-98); Monocytes # 0.8 10^3/uL (0.2-0.9); Monocytes % 9.5 %; Neutrophils # 4.97 10^3/uL (1.8-7.7); Neutrophils % 59.4 %; Nucleated Red Blood Cells % 0 %; Platelet Count 286 10^3/cmm (157-399); Red Blood Count 3.56 10^6/uL (3.85-5.65); Red Cell Distribution Width 13.1 % (12.1-15.1); White Blood Count 8.35 10^3/uL (3.29-11.43)
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
[2024-11-04 10:15] LABS: Alanine Aminotransferase 15 U/L (0-33); Albumin Level 3.8 g/dL (3.5-5.2); Alkaline Phosphatase 76 U/L (35-105); Anion Gap 16.3 (5-19); Aspartate Amino Transferase 28 U/L (0-32); Blood Urea Nitrogen 30 mg/dL (8-23); Calcium 9.4 mg/dL (8.5-10.5); Carbon Dioxide 24 mmol/L (22-29); Chloride 105 mmol/L (98-107); Globulin 2.5 g/dL (1.3-4.6); Glucose 66 mg/dL (65-115); Osmolality Calculated 296 mOsm/kg (285-295); Potassium 4.3 mmol/L (3.5-5.1); Sodium 141 mmol/L (136-145); Total Bilirubin 0.2 mg/dL (0.15-1.2); Total Protein 6.3 g/dL (6.6-8.7)
[2024-11-04 10:26] VITALS: BP 137/73; PULSE 69; O2SAT 98
== END 2024-11-04 10:27 | disposition home or self-care (01) ==
PROVIDERS: Family Medicine; Emergency Provider Emergency Medicine; PCP Family Medicine
DX: Z04.1 Encounter for examination and observation following transport accident (principal); Z79.02 Long term (current) use of antithrombotics/antiplatelets; Z79.82 Long term (current) use of aspirin; I10 Essential (primary) hypertension
CPT/HCPCS: 36415; 80053; 85025; 99283

== ENCOUNTER → 2025-02-09 10:55 | Outpatient (BNVA) | payer MEDICARE, SELFPAY | PROVIDERS: PCP Family Medicine; Visit Provider Nurse Practitioner Family | DX: I35.1 Nonrheumatic aortic (valve) insufficiency (principal); R00.2 Palpitations; I10 Essential (primary) hypertension; I49.3 Ventricular premature depolarization; E03.9 Hypothyroidism, unspecified; Z79.82 Long term (current) use of aspirin | CPT/HCPCS: 99213 ==

== ENCOUNTER 2025-03-16 14:01 | Outpatient (CLI) | payer MEDICARE, SELFPAY ==
--- NOTE | 2025-03-16 14:15 | USCV_ITS ---
Anabelle Seaman Age: 64 Gender: F : 1960 Exam Date: 03/16/2025 14:22 Ordering Phys: Annmarie Yi NP Technologist: CEE Exam Location[place] [facility] [place] Indication: Aortic Regurgitation BP: 168 / 82 HR: 66 Rhythm: Sinus Technical Quality: Adequate MEASUREMENTS (Male / Female) Normal Values 2D ECHO LV Diastolic Diameter PLAX 5.0 cm 4.2 - 5.9 / 3.9 - 5.3 cm IVS Diastolic Thickness 1.0 cm 0.6 - 1.0 / 0.6 - 0.9 cm IVS Systolic Thickness 1.3 cm LVPW Diastolic Thickness 1.3 cm 0.6 - 1.0 / 0.6 - 0.9 cm LVPW Systolic Thickness 1.8 cm LVOT Diameter 1.9 cm LV Ejection Fraction 2D Teich 54.4 % LV Ejection Fraction MOD 4C 60.0 % LV Ejection Fraction MOD 2C 54.2 % LV Ejection Fraction 2C AL 54.9 % LA Diameter 4.4 cm RA Systolic Volume 4C AL 38.2 ml RA Systolic Volume 4C MOD 36.6 ml LA Sys Volume AL 55.2 cm cubed LA Sys Volume Index AL 30.5 cm cubed/m squared Aorta at Sinotubular Diameter 2.2 cm IVC Diameter 1.6 cm M-MODE LA Ao Ratio MM 1.5 AV Cusp Separation MM 1.7 cm DOPPLER AV Peak Velocity 364.0 cm/s LVOT Peak Velocity 103.0 cm/s AV Area Cont Eq vti 0.9 cm squared AV Area Cont Eq pk 0.8 cm squared MV Peak Velocity 120.0 cm/s MV Area PHT 4.2 cm squared Mitral E to A Ratio 0.8 TR Peak Velocity 168.0 cm/s TR Peak Gradient 11.3 mmHg TV Peak E Velocity 82.0 cm/s PV Peak Velocity 104.0 cm/s FINDINGS Left Ventricle Normal left ventricular size, systolic function and wall thickness, with no regional wall motion abnormalities. Left ventricular ejection fraction is estimated at 55 %. Grade I/IV diastolic dysfunction (abnormal relaxation filling pattern), normal to mildly elevated filling pressures. Right Ventricle The right ventricle is normal in size and function. Right Atrium The right atrium is normal in size. Left Atrium The left atrium is normal in size. Mitral Valve Mildly thickened mitral valve. No mitral valve stenosis. Mild mitral valve regurgitation. Aortic Valve Moderate aortic valve calcification. Moderate aortic valve stenosis, mean gradient 26.4 mmHg, BRUCE 0.86 cm squared. Mild aortic valve regurgitation. Tricuspid Valve Structurally normal tricuspid valve without significant stenosis or regurgitation. Pulmonary artery systolic pressure is normal. Pulmonic Valve Mild pulmonary valve regurgitation. Pericardium Normal pericardium without effusion. Aorta Normal ascending aorta dimension. IVC The inferior vena cava appears normal. CONCLUSIONS Normal left ventricular size, systolic function and wall thickness, with no regional wall motion abnormalities. Left ventricular ejection fraction is estimated at 55 %. Grade I/IV diastolic dysfunction (abnormal relaxation filling pattern), normal to mildly elevated filling pressures. Mildly thickened mitral valve. No mitral valve stenosis. Mild mitral valve regurgitation. Moderate aortic valve calcification. Moderate aortic valve stenosis, mean gradient 26.4 mmHg, BRUCE 0.86 cm squared. Mild aortic valve regurgitation. There is no pericardial effusion. Right atrial pressure is around 5 mm of mercury. Aki Andrew MD (Electronically Signed) Final Date: 23 March 2025 12:07 S
== END 2025-03-16 14:02 | disposition home or self-care (01) ==
PROVIDERS: PCP Family Medicine; Visit Provider Nurse Practitioner Family
DX: I35.1 Nonrheumatic aortic (valve) insufficiency (principal); R93.1 Abnormal findings on diagnostic imaging of heart and coronary circulation; I34.0 Nonrheumatic mitral (valve) insufficiency; I35.8 Other nonrheumatic aortic valve disorders; I35.0 Nonrheumatic aortic (valve) stenosis; I37.1 Nonrheumatic pulmonary valve insufficiency
CPT/HCPCS: 93306

== ENCOUNTER 2025-04-08 13:49 | Outpatient (CLI) | payer MEDICARE, SELFPAY ==
--- NOTE | 2025-04-08 13:54 | MM_ITS ---
WS: [id number] BILATERAL SCREENING DIGITAL TOMOSYNTHESIS MAMMOGRAM WITH CAD HISTORY: SCREENING COMPARISON: 03/27/2024, 03/19/2023 Bilateral CC and MLO views with tomosynthesis and synthetic mammography submitted. Computer aided detection analyzed. Breast composition: There are scattered areas of fibroglandular density. No suspicious masses, microcalcifications or architectural distortion. Benign calcifications in each breast. MM/MM scr BI tomosynthesis [id number] IMPRESSION: BI-RADS: 2 - Benign. FOLLOW UP: 1 Year Follow-up
== END 2025-04-08 13:50 | disposition home or self-care (01) ==
LOC: RAD 13:49
PROVIDERS: PCP Family Medicine; Visit Provider Family Medicine
DX: Z12.31 Encounter for screening mammogram for malignant neoplasm of breast (principal); R92.323 Mammographic fibroglandular density, bilateral breasts; R92.1 Mammographic calcification found on diagnostic imaging of breast
CPT/HCPCS: 77063; 77067

== ENCOUNTER → 2025-04-29 12:21 | Outpatient (BNVA) | payer MEDICARE, SELFPAY | PROVIDERS: PCP Family Medicine; Visit Provider Internal Medicine Cardiovascular Disease | DX: I35.0 Nonrheumatic aortic (valve) stenosis (principal); I10 Essential (primary) hypertension | CPT/HCPCS: 36415; 80048; 85025; 85610; 99204; 99214 ==

== ENCOUNTER 2025-05-12 05:52 | Outpatient (CLI) | payer MEDICARE, SELFPAY ==
[2025-05-12] VITALS (21 sets, daily range): BP systolic 101–163; BP diastolic 31–70; PULSE 47–53; RESP 13–22; TEMP 36.6; O2SAT 89–99; BMI 24.2
--- NOTE | 2025-05-12 07:00 | XACV_ITS ---
Exam Room: 2 Ht: 150 cm Wt: 74 kg BSA: 1.79 m2 Gender: Female : 1960 Any Known Allergies: No known allergies Exam Priority: Routine Procedure(s): Procedure Description: Diagnostic procedure Procedure Description: Left Heart Catheterization Procedure Description: Left ventriculography Procedure Description: Coronary Angiography Lorrie VELOZ; Diagnostic Cath Status: Elective Diagnostic Findings * No disease noted in the Left Main, Left Anterior Descending, Right, or Circumflex coronary arteries. * Coronary angiography shows right dominance. Conclusions 1. No significant coronary artery disease was noted#1 Normal left main #2 Normal LAD #3 Normal left circumflex #4 Normal RCANormal left ventricular ejection fraction 60%Peak to peak gradient across the aortic valve was 25 mm Hg Mean gradient across the aortic valve 36 mm HgSevere aortic valve stenosis. 2. No disease noted in the Left Main, Left Anterior Descending, Right, or Circumflex coronary arteries. 3. All wolfe are normal. 4. Hyperdynamic left ventricular systolic function. Ejection fraction of 70%. Recommendations * Referred for TAVR. Diagnostic RX Recommendation: other cardiac therapy w/o CABG/PCI Ventriculography Ejection Fraction: 70.0 % Pressures Phase:Rest AO : 100 / 68 ( 80 ) @ 9:28:00 AM 141 / 71 ( 100 ) @ 9:45:00 AM LV : 159 / 11 / 26 @ 9:35:00 AM 158 / 10 / 27 @ 9:38:00 AM 166 / 3 / 25 @ 9:45:00 AM Valves Phase:DefaultPhase AV : 25.0 @ 8:53:03 AM AV Mean Gradient: 36.0 @ 8:53:03 AM Clinical Evaluation EBL: 5mL-10mL Procedural Details Procedure Consent Obtained. Pre-Procedure Time Out. Identified patient by full name and date of as verbalized by the patient/guarantor. Does the consent match the physician's order: Yes. Accurate & Complete Informed Consent: Yes. Inpatient/Outpatient History & Physical on Chart: Yes. If H&P is completed, is and addenduem needed: No. Visualize and Verify Site with Patient/Guarantor: N/A. Relevant Radiology Images available: Yes. The risks, benefits, and alternatives of sedation and/or procedure were discussed by physician. The patient agrees to continue. Procedure started. [facility] Clinical Fraility Score: 3: Managing Well. 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 Chest Pain Symptom Assessment: Atypical Angina. Cardiovascular Instability: No. Correct patient, site and procedure confirmed by cath team. PERRLA. Strong, equal hand j2ee java developer bilaterally. Lungs clear x 5 lobes. IV Site on Arrival: 20 gauge in the left anticubital. IV Fluids: 0.9% NaCl at KVO. 0 mL infused prior to trestle mainternance laborer. Pre Procedural Pulses: bilateral posterior tibial was Doppled. Pre Procedural Pulses: bilateral radial was 1+. Oxygen started at 2liters/min via nasal canula. right groin was prepped with chloroprep then draped in the usual sterile fashion. right radial was prepped with chloroprep then draped in the usual sterile fashion. Physician notified. Baseline sample Acquired. HR: 56 BPM. Patient's family in the trestle mainternance laborer waiting room. Dr. Andrew will update at the completion of the procedure. Equipment: 6F - Radial. Cardiac Cath Pack. ACIST Manifold Kit Model BT 2000. Heparinized Saline (2 units/mL), 1000 mL bag. Physician arrived. Physician scrubbed in. Immediate Pre-Procedure Time Out. Correct Patient: Yes; Correct Procedure: Yes; Correct Site: Yes; Correct Patient Position: Yes; Correct Supplies: Yes; Dried Flammable Prep: Yes; Blood Products Available: N/A;. Lidocaine 1% infiltrated to the right radial. Arterial access obtained. A 5 luxembourgish TIG catheter in over the exchange J wire. Exchange J wire out, 0.035 x 260cm stiff angled glidewire in. Multiple views taken of left coronary artery. Catheter redirected to the RCA. Multiple views taken of right coronary artery. Catheter removed over the exchange J wire. A 5 lux[place]bourgish Angled Pig catheter in over the exchange J wire. EDP Sample taken: LV 159/11,26; HR: 64 BPM; SpO2: 91%. LV gram performed in ROJAS @ 10 mL/second for a total of 30 mL. EDP Sample taken: LV 158/10,27; HR: 66 BPM; SpO2: 61%. Brimfield catheter in over the exchange J wire. Gradient taken: LV 166/3,25; AO 141/71(100); Mean: 36mmHg, Peak to Peak: 25mmHg, SEP: 18sec/min; HR: 61 BPM; SpO2: 100%. Catheter removed over the exchange J wire. Yonathan catheter out over the exchange J wire. Dr. Andrew scrubbed out. A TR Band was successful obtaining hemostatsis at the Right Radial artery insertion site. Post Procedure: Pulses reassessed and unchanged. PERRLA. Strong, equal hand j2ee java developer bilaterally. No VTE prophylaxis required. Medication's Wasted: Lidocaine 1% = 18 mL. Medication's Wasted: Nitro = 49.8 mg. Medication's Wasted: Heparin = 1000 units. Medication's Wasted: Other = Fentanyl 25 mcg. Total IV fluids: 60 mL. Post-op diagnosis: Normal Coronaries/Severe aortic stenosis. Complications: none. Estimated blood loss: 5mL-10mL. Responsiveness - Normal response to verbal stimuli; alert and oriented, PERRLA. Airway - Unaffected, no intervention required; spontaneous ventilation. Circulation: W/N/L, pulses unchanged. Nausea/Vomiting: No. Procedure completed. Patient transferred by bed to CPRU. Vital chart was stopped. Access Site Site: Right Radial artery Sheath Size: 6 Fr Hemostasis Method: TR Band Hemostasis Success: Successful Procedure Medications Start: 8:10 AM Stop: 8:10 AM Medication: Versed Amount: 1 mg Route: I.V. Start: 8:10 AM Stop: 8:10 AM Medication: Fentanyl Amount: 50 mcg Route: I.V. Start: 8:18 AM Stop: 8:18 AM Medication: Versed Amount: 1 mg Route: I.V. Start: 8:18 AM Stop: 8:18 AM Medication: Fentanyl Amount: 25 mcg Route: I.V. Start: 8:23 AM Stop: 8:23 AM Medication: Nitrogylcerin Amount: 200 mcg Route: I.A. Start: 8:28 AM Stop: 8:28 AM Medication: Heparin Amount: 5000 units Route: I.V. I, the attending physician, have reviewed and verified all procedure medications. Yes, all medications given per verbal order History/Risk Factors Hypertension: Yes Dyslipidemia: No Peripheral Arterial Disease (PAD): No Myocardial Infarction (HI): No Obesity: No Renal Disease: No Tobacco Use: Never Prior Interventions PCI: No CABG: No Valve Surgery: No Report Signatures Finalized by Aki Andrew MD on 05/19/2025 07:03 PM
--- NOTE | 2025-05-12 08:12 | W.PM.OPSUD ---
Surgery/Procedure H&P Update DATE OF PROCEDURE: May 12, 2025 DATE H&P PERFORMED: 04/29/25 H&P UPDATE INFORMATION: I have reviewed H&P completed within last 30 days, I have examined patient prior to procedure and No changes to prior documentation PREOP DIAGNOSIS: Preaortic valve assessment PRIMARY INDICATION FOR PROCEDURE: Severe aortic valve stenosis Preaortic valve left heart cath Angina equivalent PLANNED PROCEDURE: Operation Date: 05/12/25 07:00 Proposed Procedures p Cardiac Catheterization - LHC w/wo LV & Coros(Left) - Aki Andrew MD PATIENT REASSESSED PRIOR TO SEDATION, WITH NO CHANGE NOTED: Yes PHYSICAL EXAM: alert, oriented x 3, clear to auscultation bilaterally, regular rate & rhythm and operative site marked AIRWAY EVAL/ANESTHESIA PLAN: ASA II, Risks, benefits & alternatives of sedation and/or procedure discussed and Patient agrees to continue as planned ADDITIONAL INFORMATION: All risk-benefit and alternative for the procedure has been explained to the patient. Patient understand 2% risk of stroke major bleed. Patient understand 5% risk of minor bleeding oozing infection hematoma contrast-induced nephropathy urgent or emergent vascular bypass surgery. Patient would like to proceed with that.
--- NOTE | 2025-05-12 09:00 | PC.NURSE ---
Patient arrived to CPRU 3 post cath. Pt arrived drowsy and oriented X 3. Breathing even and non-labored on room air. TR band band in place to right radial. No hematoma or bleeding noted, skin under band and proximal to band bruised but soft. Placed on bedside engine monitor. Denies pain, family at bedside. Call light in reach.
--- NOTE | 2025-05-12 13:50 | PC.NURSE ---
TR band removal note Started releasing air from right radial TR band at 1030. 1 -2 ml air released every 5-15minutes per protocol until band deflated. Band deflated at 1215. Site is bruised but soft. No hemtoma palpated or bleeding observed. Bruising area marked. Radial pulse palpated. Site dressed with large clean bandaid. Pt placed in arm sling to help with activity restriction of right arm.
== END 2025-05-12 13:35 | disposition home or self-care (01) ==
PROVIDERS: PCP Family Medicine; Visit Provider Internal Medicine Cardiovascular Disease
DX: I35.0 Nonrheumatic aortic (valve) stenosis (principal); I10 Essential (primary) hypertension; K21.9 Gastro-esophageal reflux disease without esophagitis; E03.9 Hypothyroidism, unspecified; F41.8 Other specified anxiety disorders
CPT/HCPCS: 36415; 93458; 96365; 99152; 99153; C1769; C1887; C1894; J1644; J2250; J3010; J3490; J7030; J9999; Q0163; Q9967